=== PATIENT | male | born 1945 | race Caucasian/White ===

== ENCOUNTER → 2021-01-12 | Outpatient (CLI) | payer MEDICARE ==
[~2021-01-12] MED LIST: BACTROBAN CREAM15 GM TOP
[2021-01-12 10:52] LABS: BUN/CREATININE RATIO 12 (0-10)
[2021-01-13 15:13] LABS: CREATININE, URINE 80.5 mg/dL (Not Estab.)
== END ==
LOC: LAB 09:23
PROVIDERS: Family Medicine
DX: E11.9 Type 2 diabetes mellitus without complications (principal); E78.5 Hyperlipidemia, unspecified; E56.9 Vitamin deficiency, unspecified
CPT/HCPCS: 36415; 80053; 80061; 82043; 82570; 83036; 84443